=== PATIENT | male | born 1970 | race Caucasian/White ===

== ENCOUNTER 2017-02-16 19:04 | Emergency (ER) | payer OTHER | END 2017-02-16 22:10 | disposition home or self-care (01) | LOC: ER 19:04 | DX: L03.211 Cellulitis of face (principal); E78.5 Hyperlipidemia, unspecified; I10 Essential (primary) hypertension; F17.200 Nicotine dependence, unspecified, uncomplicated; Z79.899 Other long term (current) drug therapy | CPT/HCPCS: 36415; 96365 ==

== ENCOUNTER 2017-03-05 18:48 | Emergency (ER) | payer OTHER | END 2017-03-05 18:50 | disposition home or self-care (01) | LOC: ER 18:48 | DX: K04.6 Periapical abscess with sinus (principal); K02.9 Dental caries, unspecified; I10 Essential (primary) hypertension; E78.00 Pure hypercholesterolemia, unspecified; Z79.899 Other long term (current) drug therapy; F17.200 Nicotine dependence, unspecified, uncomplicated; Z86.718 Personal history of other venous thrombosis and embolism ==